=== PATIENT | male | born 1955 | race Caucasian/White ===

== ENCOUNTER 2020-01-03 05:55 | Emergency (ER) | payer MEDICARE ==
[~2020-01-03] VITALS: Ht 170.2 cm; Wt 68.0 kg
[~2020-01-03 05:55] MED LIST: LAM25 PO
[2020-01-03] MEDS ORDERED: HYDROCODONE/ACETAMINOPHEN 5/325MG TABLET PO STA (06:26)
[2020-01-03 07:16] LABS: BASOPHILS % 0.5 % (0.0-2.0); EOSINOPHILS % 1.8 % (0.0-5.0); HEMATOCRIT. 41.5 % (42.0-52.0); HEMOGLOBIN. 14.5 g/dL (14.0-18.0); LYMPHOCYTES % 25.5 % (20.0-50.0); MEAN CORPUSCULAR HEMOGLOBIN 33.4 pg (28.0-32.0); MEAN CORPUSCULAR VOLUME 95.7 fL (80.0-94.0); MEAN PLATELET VOLUME 6.8 fl (7.4-10.4); MONOCYTES % 5.4 % (2.0-8.0); NEUTROPHILS % 66.8 % (40.0-76.0); PLATELET 170 x1000/uL (130-400); RED BLOOD CELL COUNT 4.34 mill/uL (4.7-6.1); RED CELL DISTRIBUTION WIDTH 15.3 % (11.6-14.6)
[2020-01-03 07:22] LABS: CHLORIDE 104 mEq/L (98-107)
[2020-01-03 07:26] LABS: PROTHROMBIN TIME 10.8 sec (9.6-11.0)
[2020-01-03] MEDS ORDERED: SODIUM CHLORIDE 0.9% 1,000 ML IV ONE (07:32)
[2020-01-03 07:37] LABS: ETHANOL BLOOD 306 mg/dL
[2020-01-03] MEDS ORDERED: LORAZEPAM 1MG TABLET PO ONE (07:45)
[2020-01-03 12:05] VITALS: BP 159/91
== END 2020-01-03 10:40 | disposition home or self-care (01) ==
LOC: ER 05:55
DX: F10.129 Alcohol abuse with intoxication, unspecified (principal); Y90.8 Blood alcohol level of 240 mg/100 ml or more; M25.562 Pain in left knee; E86.0 Dehydration; I10 Essential (primary) hypertension; R79.89 Other specified abnormal findings of blood chemistry
CPT/HCPCS: 29505; 36415; 70450; 72170; 73562; 80053; 80320; 84484; 85025; 85610; 96360; 99285; J7030; G0480

== ENCOUNTER 2020-06-07 19:15 | Emergency (ER) | payer MEDICARE ==
[~2020-06-07] VITALS: Ht 175.3 cm; Wt 70.0 kg
[2020-06-08] MEDS ORDERED: KETOROLAC 30MG/ML VIAL IV STA (00:27)
[2020-06-08] MEDS ORDERED: ONDANSETRON HCL 4MG/2ML INJ IV STA (00:27)
[2020-06-08] MEDS ORDERED: FAMOTIDINE 20MG/2ML VIAL IV STA (00:27)
[2020-06-08] MEDS ORDERED: SODIUM CHLORIDE 0.9% 1,000 ML IV ONE (00:30)
[2020-06-08 01:10] LABS: BASOPHILS % 0.4 % (0.0-2.0); EOSINOPHILS % 1.4 % (0.0-5.0); HEMATOCRIT. 42.7 % (42.0-52.0); HEMOGLOBIN. 14.7 g/dL (14.0-18.0); LYMPHOCYTES % 20.8 % (20.0-50.0); MEAN CORPUSCULAR HEMOGLOBIN 34.2 pg (28.0-32.0); MEAN CORPUSCULAR VOLUME 99.5 fL (80.0-94.0); MEAN PLATELET VOLUME 7.8 fl (7.4-10.4); MONOCYTES % 9.4 % (2.0-8.0); PLATELET 228 x1000/uL (130-400); RED CELL DISTRIBUTION WIDTH 14.2 % (11.6-14.6)
[2020-06-08 01:17] LABS: CHLORIDE 101 mEq/L (98-107)
[2020-06-08 01:34] LABS: CLARITY URINE CLEAR (CLEAR); COLOR URINE YELLOW (YELLOW); KETONES URINE NEGATIVE (NEGATIVE); LEUKOCYTE ESTERASE URINE NEGATIVE (NEGATIVE); NITRITE URINE NEGATIVE (NEGATIVE); OCCULT BLOOD URINE NEGATIVE (NEGATIVE); PROTEIN URINE NEGATIVE (NEGATIVE); UROBILINOGEN URINE 0.2 E.U./dL (0.2-1.0)
[2020-06-08] MEDS ORDERED: CALCIUM CARBONATE 500MG TABLET CHEW PO ONE (02:45)
[2020-06-08 03:31] VITALS: BP 142/76
== END 2020-06-08 03:00 | disposition home or self-care (01) ==
LOC: ER 19:15
DX: K29.80 Duodenitis without bleeding (principal); R11.2 Nausea with vomiting, unspecified; I10 Essential (primary) hypertension; Z88.2 Allergy status to sulfonamides
CPT/HCPCS: 36415; 74176; 80053; 81003; 83690; 85025; 93005; 96361; 96374; 96375; 99285; J1885; J2405; J3490; J7030

== ENCOUNTER 2020-07-19 23:35 | Emergency (ER) | payer MEDICARE ==
[~2020-07-19] VITALS: Ht 177.8 cm; Wt 77.0 kg
[~2020-07-19 23:35] MED LIST changes: +ALPR1TAB2 PO; +AMPH20TA3 PO; +LISI10TA5 PO
[2020-07-20] MEDS ORDERED: ONDANSETRON HCL 4MG TABLET PO ONE
[2020-07-20 01:55] VITALS: BP 140/89
== END 2020-07-20 02:04 | disposition home or self-care (01) ==
LOC: ER 23:35
DX: R11.2 Nausea with vomiting, unspecified (principal); R06.02 Shortness of breath; R50.9 Fever, unspecified; I10 Essential (primary) hypertension; Z88.2 Allergy status to sulfonamides; Z79.899 Other long term (current) drug therapy; Z20.822 Contact with and (suspected) exposure to COVID-19
CPT/HCPCS: 71045; 93005; 99285; C9803; Q0162; U0003

== ENCOUNTER 2020-08-14 16:58 | Inpatient (IN) | payer MEDICARE ==
[~2020-08-14] VITALS: Ht 177.8 cm; Wt 72.7 kg
[~2020-08-14 16:58] MED LIST changes: +LISI10TA26 PO; -LISI10TA5 PO
[2020-08-14 17:00] VITALS: BP 133/84
[2020-08-14 18:06] VITALS: BP 133/84
[2020-08-14] MEDS ORDERED: CLONIDINE 0.1MG TABLET PO PRN (18:15)
[2020-08-14] MEDS ORDERED: INFLUENZA VACCINE 05/PF 0.5 ML VIAL IM ONE (18:30)
[2020-08-14 20:00] VITALS: BP 126/65
[2020-08-14] MEDS: HYDROCODONE/ACETAMINOPHEN 5/325MG TABLET PO PRN (20:46)
[2020-08-14] MEDS: ONDANSETRON 4MG ODT PO PRN (20:46)
[2020-08-14] MEDS: LAMOTRIGINE 25MG TABLET PO SCH (20:47)
[2020-08-14] MEDS: HYDRALAZINE HCL 100MG TABLET PO SCH (21:49)
[2020-08-14] MEDS: METOPROLOL TARTRATE 25MG TABLET PO SCH (21:50)
[2020-08-15] MEDS: HYDROCODONE/ACETAMINOPHEN 5/325MG TABLET PO PRN ×4 (06:01→22:14)
[2020-08-15] MEDS: ONDANSETRON 4MG ODT PO PRN (06:02)
[2020-08-15] MEDS: HYDRALAZINE HCL 100MG TABLET PO SCH ×3 (06:02→22:00)
[2020-08-15 07:37] LABS: HEMATOCRIT. 32.9 % (42.0-52.0); HEMOGLOBIN. 11.3 g/dL (14.0-18.0); MEAN CORPUSCULAR HEMOGLOBIN 34.6 pg (28.0-32.0); MEAN CORPUSCULAR VOLUME 100.8 fL (80.0-94.0); MEAN PLATELET VOLUME 7.5 fl (7.4-10.4); PLATELET 262 x1000/uL (130-400); RED BLOOD CELL COUNT 3.26 mill/uL (4.7-6.1)
[2020-08-15 07:42] LABS: CHLORIDE 107 mEq/L (98-107)
[2020-08-15 08:00] VITALS: BP 146/79
[2020-08-15] MEDS: FOLIC ACID 1MG TABLET PO SCH (08:27)
[2020-08-15] MEDS: METOPROLOL TARTRATE 25MG TABLET PO SCH ×2 (08:28→21:50)
[2020-08-15] MEDS: THIAMINE HCL 100MG TABLET PO SCH (08:28)
[2020-08-15] MEDS: LAMOTRIGINE 25MG TABLET PO SCH ×2 (08:28→21:49)
[2020-08-15] MEDS: FAMOTIDINE 20MG TABLET PO SCH ×2 (08:28→21:49)
[2020-08-15] MEDS: DOCUSATE SODIUM 100MG CAPSULE PO SCH ×2 (08:28→17:25)
[2020-08-15] MEDS: FOLIC ACID/VITAMIN B COMP W-C TABLET PO SCH (08:29)
[2020-08-15] MEDS: LISINOPRIL 40MG TABLET PO SCH (08:29)
[2020-08-15] MEDS ORDERED: PNEUMOCOCCAL 23-VAL P-SAC VAC 0.5 ML IM ONE (10:00)
[2020-08-15] MEDS: HEPARIN 5000 UNITS/ML VIAL SUBCUT SCH ×2 (10:19→21:49)
[2020-08-15 20:00] VITALS: BP 140/82
[2020-08-15 21:18] LABS: PLATELET ESTIMATE NORMAL
[2020-08-16] MEDS: HYDRALAZINE HCL 100MG TABLET PO SCH ×3 (05:14→22:00)
[2020-08-16 06:10] LABS: HEMOGLOBIN. 11.7 g/dL (14.0-18.0); MEAN CORPUSCULAR HEMOGLOBIN 34.8 pg (28.0-32.0); MEAN CORPUSCULAR VOLUME 101.2 fL (80.0-94.0); MEAN PLATELET VOLUME 7.4 fl (7.4-10.4); PLATELET 283 x1000/uL (130-400); RED BLOOD CELL COUNT 3.36 mill/uL (4.7-6.1); RED CELL DISTRIBUTION WIDTH 15.8 % (11.6-14.6)
[2020-08-16 06:33] LABS: FERRITIN 245 ng/mL (22-322)
[2020-08-16 06:34] LABS: FOLIC ACID (FOLATE) SERUM >20 ng/mL ng/mL (>5.38)
[2020-08-16 06:45] LABS: VITAMIN B12 SERUM 474 pg/mL (211-911)
[2020-08-16 08:00] VITALS: BP 140/83
[2020-08-16] MEDS: THIAMINE HCL 100MG TABLET PO SCH (08:08)
[2020-08-16] MEDS: FAMOTIDINE 20MG TABLET PO SCH ×2 (08:08→21:21)
[2020-08-16] MEDS: METOPROLOL TARTRATE 25MG TABLET PO SCH ×2 (08:09→21:20)
[2020-08-16] MEDS: LISINOPRIL 40MG TABLET PO SCH (08:09)
[2020-08-16] MEDS: FOLIC ACID/VITAMIN B COMP W-C TABLET PO SCH (08:10)
[2020-08-16] MEDS: LAMOTRIGINE 25MG TABLET PO SCH ×2 (08:10→21:20)
[2020-08-16] MEDS: DOCUSATE SODIUM 100MG CAPSULE PO SCH ×2 (08:10→16:57)
[2020-08-16] MEDS: HEPARIN 5000 UNITS/ML VIAL SUBCUT SCH ×2 (08:10→21:20)
[2020-08-16] MEDS: FOLIC ACID 1MG TABLET PO SCH (08:10)
[2020-08-16] MEDS: HYDROCODONE/ACETAMINOPHEN 5/325MG TABLET PO PRN ×3 (08:12→16:57)
[2020-08-16 08:20] LABS: CHLORIDE 105 mEq/L (98-107)
[2020-08-16 08:29] LABS: PHOSPHORUS 3.2 mg/dL (2.5-4.9); TOTAL IRON BINDING CAPACITY 261 ug/dL (250-450)
[2020-08-16 16:51] LABS: PLATELET ESTIMATE NORMAL
[2020-08-16] MEDS: CYANOCOBALAMIN 1000MCG/ML VIAL IM SCH (16:55)
[2020-08-16 20:00] VITALS: BP 125/74
[2020-08-17] MEDS: HYDROCODONE/ACETAMINOPHEN 5/325MG TABLET PO PRN ×5 (01:34→21:23)
[2020-08-17] MEDS: HYDRALAZINE HCL 100MG TABLET PO SCH ×3 (06:10→21:23)
[2020-08-17 08:00] VITALS: BP 131/73
[2020-08-17] MEDS: CYANOCOBALAMIN 1000MCG/ML VIAL IM SCH (08:12)
[2020-08-17] MEDS: HEPARIN 5000 UNITS/ML VIAL SUBCUT SCH ×2 (08:12→21:23)
[2020-08-17] MEDS: FOLIC ACID/VITAMIN B COMP W-C TABLET PO SCH (08:12)
[2020-08-17] MEDS: LISINOPRIL 40MG TABLET PO SCH (08:14)
[2020-08-17] MEDS: FOLIC ACID 1MG TABLET PO SCH (08:14)
[2020-08-17] MEDS: METOPROLOL TARTRATE 25MG TABLET PO SCH ×2 (08:14→21:22)
[2020-08-17] MEDS: LAMOTRIGINE 25MG TABLET PO SCH ×2 (08:14→21:21)
[2020-08-17] MEDS: FAMOTIDINE 20MG TABLET PO SCH ×2 (08:14→21:21)
[2020-08-17] MEDS: DOCUSATE SODIUM 100MG CAPSULE PO SCH ×2 (08:15→17:00)
[2020-08-17] MEDS: THIAMINE HCL 100MG TABLET PO SCH (08:15)
[2020-08-17 20:00] VITALS: BP 127/72
[2020-08-17] MEDS: ZOLPIDEM TARTRATE 5MG TABLET PO PRN (21:21)
[2020-08-18] MEDS: HYDRALAZINE HCL 100MG TABLET PO SCH ×3 (06:16→21:51)
[2020-08-18] MEDS: HYDROCODONE/ACETAMINOPHEN 5/325MG TABLET PO PRN ×3 (06:43→15:16)
[2020-08-18 08:09] VITALS: BP 135/76
[2020-08-18 08:15] VITALS: BP 135/76
[2020-08-18] MEDS: DOCUSATE SODIUM 100MG CAPSULE PO SCH ×3 (09:00→17:00)
[2020-08-18] MEDS: METOPROLOL TARTRATE 25MG TABLET PO SCH ×2 (10:10→21:00)
[2020-08-18] MEDS: FOLIC ACID 1MG TABLET PO SCH (10:10)
[2020-08-18] MEDS: FAMOTIDINE 20MG TABLET PO SCH ×2 (10:10→21:43)
[2020-08-18] MEDS: FOLIC ACID/VITAMIN B COMP W-C TABLET PO SCH (10:11)
[2020-08-18] MEDS: HEPARIN 5000 UNITS/ML VIAL SUBCUT SCH ×2 (10:11→21:43)
[2020-08-18] MEDS: CYANOCOBALAMIN 1000MCG/ML VIAL IM SCH (10:11)
[2020-08-18] MEDS: THIAMINE HCL 100MG TABLET PO SCH (10:11)
[2020-08-18] MEDS: LISINOPRIL 40MG TABLET PO SCH (10:11)
[2020-08-18] MEDS: LAMOTRIGINE 25MG TABLET PO SCH ×2 (10:11→21:44)
[2020-08-18 20:00] VITALS: BP 105/62
[2020-08-18] MEDS: ALPRAZOLAM 0.5 MG TABLET PO PRN (21:43)
[2020-08-19] MEDS: HYDRALAZINE HCL 100MG TABLET PO SCH ×3 (06:45→21:20)
[2020-08-19 08:24] VITALS: BP 115/74
[2020-08-19] MEDS: FOLIC ACID 1MG TABLET PO SCH (10:53)
[2020-08-19] MEDS: LISINOPRIL 40MG TABLET PO SCH (10:53)
[2020-08-19] MEDS: METOPROLOL TARTRATE 25MG TABLET PO SCH ×2 (10:53→21:17)
[2020-08-19] MEDS: THIAMINE HCL 100MG TABLET PO SCH (10:53)
[2020-08-19] MEDS: FAMOTIDINE 20MG TABLET PO SCH ×2 (10:54→21:18)
[2020-08-19] MEDS: DOCUSATE SODIUM 100MG CAPSULE PO SCH ×2 (10:54→16:57)
[2020-08-19] MEDS: LAMOTRIGINE 25MG TABLET PO SCH ×2 (10:54→21:18)
[2020-08-19] MEDS: FOLIC ACID/VITAMIN B COMP W-C TABLET PO SCH (10:54)
[2020-08-19] MEDS: HYDROCODONE/ACETAMINOPHEN 5/325MG TABLET PO PRN ×2 (11:15→21:19)
[2020-08-19] MEDS: HEPARIN 5000 UNITS/ML VIAL SUBCUT SCH ×2 (11:16→21:20)
[2020-08-19] MEDS: ALPRAZOLAM 0.5 MG TABLET PO PRN (12:01)
[2020-08-19 20:00] VITALS: BP_SYST 108; BP_SYST 128; BP_DIAS 87
[2020-08-19] MEDS: ZOLPIDEM TARTRATE 5MG TABLET PO PRN (21:18)
[2020-08-20] MEDS: HYDRALAZINE HCL 100MG TABLET PO SCH ×3 (05:55→21:09)
[2020-08-20 07:24] LABS: BASOPHILS % 1.2 % (0.0-2.0); EOSINOPHILS % 3.3 % (0.0-5.0); HEMATOCRIT. 32.7 % (42.0-52.0); HEMOGLOBIN. 11.2 g/dL (14.0-18.0); LYMPHOCYTES % 32.1 % (20.0-50.0); MEAN CORPUSCULAR HEMOGLOBIN 34.6 pg (28.0-32.0); MEAN PLATELET VOLUME 7.5 fl (7.4-10.4); MONOCYTES % 10.4 % (2.0-8.0); PLATELET 286 x1000/uL (130-400); RED BLOOD CELL COUNT 3.24 mill/uL (4.7-6.1); RED CELL DISTRIBUTION WIDTH 15.8 % (11.6-14.6)
[2020-08-20 07:44] VITALS: BP 138/72
[2020-08-20 08:18] LABS: CHLORIDE 108 mEq/L (98-107)
[2020-08-20] MEDS: FOLIC ACID 1MG TABLET PO SCH (08:18)
[2020-08-20] MEDS: DOCUSATE SODIUM 100MG CAPSULE PO SCH ×2 (08:18→16:21)
[2020-08-20] MEDS: THIAMINE HCL 100MG TABLET PO SCH (08:18)
[2020-08-20] MEDS: LAMOTRIGINE 25MG TABLET PO SCH ×2 (08:18→21:07)
[2020-08-20] MEDS: FAMOTIDINE 20MG TABLET PO SCH ×2 (08:18→21:08)
[2020-08-20] MEDS: METOPROLOL TARTRATE 25MG TABLET PO SCH ×2 (08:18→21:00)
[2020-08-20] MEDS: LISINOPRIL 40MG TABLET PO SCH (08:18)
[2020-08-20] MEDS: FOLIC ACID/VITAMIN B COMP W-C TABLET PO SCH (08:18)
[2020-08-20] MEDS: HEPARIN 5000 UNITS/ML VIAL SUBCUT SCH ×2 (08:19→21:08)
[2020-08-20] MEDS: HYDROCODONE/ACETAMINOPHEN 5/325MG TABLET PO PRN ×2 (08:25→21:09)
[2020-08-20] MEDS: ALPRAZOLAM 0.5 MG TABLET PO PRN (08:25)
[2020-08-20 20:00] VITALS: BP 112/74
[2020-08-20] MEDS: ZOLPIDEM TARTRATE 5MG TABLET PO PRN (23:31)
[2020-08-21] MEDS: HYDRALAZINE HCL 100MG TABLET PO SCH ×3 (06:07→21:03)
[2020-08-21] MEDS: HYDROCODONE/ACETAMINOPHEN 5/325MG TABLET PO PRN ×2 (06:07→16:51)
[2020-08-21 08:23] VITALS: BP 139/86
[2020-08-21] MEDS: DOCUSATE SODIUM 100MG CAPSULE PO SCH ×2 (09:00→16:22)
[2020-08-21] MEDS: FOLIC ACID/VITAMIN B COMP W-C TABLET PO SCH (09:36)
[2020-08-21] MEDS: HEPARIN 5000 UNITS/ML VIAL SUBCUT SCH ×2 (09:37→20:40)
[2020-08-21] MEDS: ALPRAZOLAM 0.5 MG TABLET PO PRN (09:37)
[2020-08-21] MEDS: METOPROLOL TARTRATE 25MG TABLET PO SCH ×2 (09:37→20:41)
[2020-08-21] MEDS: FOLIC ACID 1MG TABLET PO SCH (09:37)
[2020-08-21] MEDS: LAMOTRIGINE 25MG TABLET PO SCH ×2 (09:37→20:40)
[2020-08-21] MEDS: LISINOPRIL 40MG TABLET PO SCH (09:37)
[2020-08-21] MEDS: THIAMINE HCL 100MG TABLET PO SCH (09:37)
[2020-08-21] MEDS: FAMOTIDINE 20MG TABLET PO SCH ×2 (09:38→20:40)
[2020-08-21 17:06] LABS: 25-HYDROXY VITAMIN D3 13 ng/mL (.)
[2020-08-21 20:00] VITALS: BP 121/76
[2020-08-21] MEDS: ZOLPIDEM TARTRATE 5MG TABLET PO PRN (21:24)
[2020-08-22] MEDS: HYDRALAZINE HCL 100MG TABLET PO SCH ×3 (05:42→22:00)
[2020-08-22] MEDS: HYDROCODONE/ACETAMINOPHEN 5/325MG TABLET PO PRN (06:52)
[2020-08-22 08:23] VITALS: BP 134/78
[2020-08-22] MEDS: DOCUSATE SODIUM 100MG CAPSULE PO SCH ×2 (09:00→16:37)
[2020-08-22] MEDS: HEPARIN 5000 UNITS/ML VIAL SUBCUT SCH (09:00)
[2020-08-22] MEDS: LAMOTRIGINE 25MG TABLET PO SCH ×2 (09:36→21:57)
[2020-08-22] MEDS: FOLIC ACID/VITAMIN B COMP W-C TABLET PO SCH (09:36)
[2020-08-22] MEDS: THIAMINE HCL 100MG TABLET PO SCH (09:36)
[2020-08-22] MEDS: LISINOPRIL 40MG TABLET PO SCH (09:37)
[2020-08-22] MEDS: METOPROLOL TARTRATE 25MG TABLET PO SCH ×2 (09:37→21:57)
[2020-08-22] MEDS: FOLIC ACID 1MG TABLET PO SCH (09:37)
[2020-08-22] MEDS: ALPRAZOLAM 0.5 MG TABLET PO PRN ×2 (09:38→21:56)
[2020-08-22] MEDS: FAMOTIDINE 20MG TABLET PO SCH ×2 (09:38→21:56)
[2020-08-22] MEDS ORDERED: ERGOCALCIFEROL 50000UNITS CAPSULE PO SCH (10:00)
[2020-08-22 20:00] VITALS: BP_SYST 102; BP_SYST 107; BP_DIAS 67; BP_DIAS 72
[2020-08-22] MEDS ORDERED: IOHEXOL-300 100 ML BOTTLE ONE (21:28)
[2020-08-22 22:51] VITALS: BP 102/67
[2020-08-23] MEDS: HYDROCODONE/ACETAMINOPHEN 5/325MG TABLET PO PRN ×3 (02:14→20:15)
[2020-08-23] MEDS: HYDRALAZINE HCL 100MG TABLET PO SCH ×3 (06:34→22:00)
[2020-08-23 07:57] VITALS: BP 111/62
[2020-08-23] MEDS: FOLIC ACID/VITAMIN B COMP W-C TABLET PO SCH (08:00)
[2020-08-23] MEDS: FOLIC ACID 1MG TABLET PO SCH (08:00)
[2020-08-23] MEDS: THIAMINE HCL 100MG TABLET PO SCH (08:00)
[2020-08-23] MEDS: LISINOPRIL 40MG TABLET PO SCH (08:01)
[2020-08-23] MEDS: LAMOTRIGINE 25MG TABLET PO SCH ×2 (08:01→20:14)
[2020-08-23] MEDS: FAMOTIDINE 20MG TABLET PO SCH ×2 (08:01→20:14)
[2020-08-23] MEDS: METOPROLOL TARTRATE 25MG TABLET PO SCH ×2 (08:01→21:00)
[2020-08-23] MEDS: DOCUSATE SODIUM 100MG CAPSULE PO SCH ×2 (08:02→17:00)
[2020-08-23] MEDS: ALPRAZOLAM 0.5 MG TABLET PO PRN (13:36)
[2020-08-23 15:43] LABS: BASOPHILS % 0.7 % (0.0-2.0); EOSINOPHILS % 2.3 % (0.0-5.0); HEMATOCRIT. 33.7 % (42.0-52.0); HEMOGLOBIN. 11.5 g/dL (14.0-18.0); LYMPHOCYTES % 14.4 % (20.0-50.0); MEAN CORPUSCULAR HEMOGLOBIN 34.5 pg (28.0-32.0); MEAN CORPUSCULAR VOLUME 100.9 fL (80.0-94.0); NEUTROPHILS % 76.6 % (40.0-76.0); PLATELET 297 x1000/uL (130-400); RED BLOOD CELL COUNT 3.34 mill/uL (4.7-6.1); RED CELL DISTRIBUTION WIDTH 15.1 % (11.6-14.6)
[2020-08-23 15:52] LABS: CHLORIDE 107 mEq/L (98-107)
[2020-08-23] MEDS ORDERED: LISI40TA13 PO (16:35)
[2020-08-23] MEDS ORDERED: HYDR100T26 MT (16:35)
[2020-08-23 20:00] VITALS: BP 119/77
[2020-08-23] MEDS: ZOLPIDEM TARTRATE 5MG TABLET PO PRN (23:06)
[2020-08-24] MEDS: HYDRALAZINE HCL 100MG TABLET PO SCH ×3 (05:46→22:00)
[2020-08-24 08:00] VITALS: BP 132/87
[2020-08-24] MEDS: THIAMINE HCL 100MG TABLET PO SCH (08:39)
[2020-08-24] MEDS: FOLIC ACID/VITAMIN B COMP W-C TABLET PO SCH (08:40)
[2020-08-24] MEDS: FAMOTIDINE 20MG TABLET PO SCH ×2 (08:40→21:00)
[2020-08-24] MEDS: FOLIC ACID 1MG TABLET PO SCH (08:40)
[2020-08-24] MEDS: LISINOPRIL 40MG TABLET PO SCH (08:41)
[2020-08-24] MEDS: METOPROLOL TARTRATE 25MG TABLET PO SCH ×2 (08:42→21:41)
[2020-08-24] MEDS: LAMOTRIGINE 25MG TABLET PO SCH ×2 (08:42→21:40)
[2020-08-24] MEDS: HYDROCODONE/ACETAMINOPHEN 5/325MG TABLET PO PRN ×2 (08:43→21:43)
[2020-08-24] MEDS: DOCUSATE SODIUM 100MG CAPSULE PO SCH ×2 (09:00→17:00)
[2020-08-24] MEDS: ALPRAZOLAM 0.5 MG TABLET PO PRN (13:18)
[2020-08-24 13:20] VITALS: BP 111/70
[2020-08-24 20:00] VITALS: BP 125/68
[2020-08-25] MEDS: ZOLPIDEM TARTRATE 5MG TABLET PO PRN (01:04)
[2020-08-25] MEDS: HYDRALAZINE HCL 100MG TABLET PO SCH ×2 (05:57→13:28)
[2020-08-25] MEDS: HYDROCODONE/ACETAMINOPHEN 5/325MG TABLET PO PRN ×2 (07:28→13:28)
[2020-08-25] MEDS: FAMOTIDINE 20MG TABLET PO SCH (08:16)
[2020-08-25] MEDS: LISINOPRIL 40MG TABLET PO SCH (08:16)
[2020-08-25] MEDS: FOLIC ACID/VITAMIN B COMP W-C TABLET PO SCH (08:16)
[2020-08-25] MEDS: METOPROLOL TARTRATE 25MG TABLET PO SCH (08:16)
[2020-08-25] MEDS: FOLIC ACID 1MG TABLET PO SCH (08:16)
[2020-08-25] MEDS: DOCUSATE SODIUM 100MG CAPSULE PO SCH (08:16)
[2020-08-25] MEDS: LAMOTRIGINE 25MG TABLET PO SCH (08:16)
[2020-08-25] MEDS: THIAMINE HCL 100MG TABLET PO SCH (08:16)
[2020-08-25 08:29] VITALS: BP 136/75
[2020-08-25] MEDS: ALPRAZOLAM 0.5 MG TABLET PO PRN (09:29)
[2020-08-25 12:07] VITALS: BP 136/75
[2020-08-25 13:07] LABS: ANA IFA Negative (.)
[2020-08-25 13:28] VITALS: BP 110/72
== END 2020-08-25 15:30 | disposition home health service (06) | DRG 74 ==
PROVIDERS: ADMIT Physical Medicine & Rehabilitation Spinal Cord Injury Medicine; ATTEND Ophthalmology
DX: G62.81 Critical illness polyneuropathy (principal); K80.00 Calculus of gallbladder with acute cholecystitis without obstruction; I42.6 Alcoholic cardiomyopathy; I11.0 Hypertensive heart disease with heart failure; M17.12 Unilateral primary osteoarthritis, left knee; K29.70 Gastritis, unspecified, without bleeding; I50.9 Heart failure, unspecified; G62.1 Alcoholic polyneuropathy; I65.21 Occlusion and stenosis of right carotid artery; E55.9 Vitamin D deficiency, unspecified; M48.02 Spinal stenosis, cervical region; Z20.822 Contact with and (suspected) exposure to COVID-19; G40.909 Epilepsy, unspecified, not intractable, without status epilepticus; D64.9 Anemia, unspecified; K76.0 Fatty (change of) liver, not elsewhere classified; K20.90 Esophagitis, unspecified without bleeding; D72.819 Decreased white blood cell count, unspecified; F10.20 Alcohol dependence, uncomplicated; Z88.2 Allergy status to sulfonamides; Z82.49 Family history of ischemic heart disease and other diseases of the circulatory system; Z90.49 Acquired absence of other specified parts of digestive tract
CPT/HCPCS: 36415; 70496; 70498; 80048; 80053; 82306; 82607; 82728; 82746; 83540; 83550; 83735; 84100; 84134; 84443; 85025; 86256; 87426; 90686; 90732; 92523; 93970; 97110; 97112; 97116; 97162; 97166; 97530; 97535; J1644; J3420; Q0162; Q9967

== ENCOUNTER 2021-12-28 20:31 | Emergency (ER) | payer MEDICARE ==
[~2021-12-28] VITALS: Ht 167.6 cm; Wt 86.0 kg
[~2021-12-28 20:31] MED LIST changes: +HYDR100T26 MT; -LISI10TA26 PO; +LISI40TA13 PO
[2021-12-28] MEDS ORDERED: KETOROLAC 30MG/ML VIAL IV STA (21:26)
[2021-12-28 21:44] LABS: BASOPHILS % 0.5 % (0.0-2.0); EOSINOPHILS % 4.8 % (0.0-5.0); HEMATOCRIT. 45.8 % (42.0-52.0); HEMOGLOBIN. 15.5 g/dL (14.0-18.0); LYMPHOCYTES % 25.1 % (20.0-50.0); MEAN CORPUSCULAR HEMOGLOBIN 33.4 pg (28.0-32.0); MEAN CORPUSCULAR VOLUME 98.5 fL (80.0-94.0); MEAN PLATELET VOLUME 7.3 fl (7.4-10.4); MONOCYTES % 8.6 % (2.0-8.0); PLATELET 167 x1000/uL (130-400); RED BLOOD CELL COUNT 4.65 mill/uL (4.7-6.1); RED CELL DISTRIBUTION WIDTH 13.6 % (11.6-14.6)
[2021-12-28 21:53] LABS: CHLORIDE 104 mEq/L (98-107)
[2021-12-29 02:00] VITALS: BP 149/102
[2021-12-29] MEDS ORDERED: SODIUM CHLORIDE 0.9% 500 ML IV ONE (02:15)
[2021-12-29] MEDS ORDERED: ONDANSETRON HCL 4MG/2ML INJ IV ONE (02:15)
[2021-12-29] MEDS ORDERED: FAMOTIDINE 20MG/2ML VIAL IV ONE (02:15)
[2021-12-29] MEDS ORDERED: LEVO750T46 MT (03:01)
[2021-12-29] MEDS ORDERED: ONDA4TAB11 PO (03:02)
[2021-12-29] MEDS ORDERED: LEVOFLOXACIN 250MG TABLET PO ONE (03:15)
== END 2021-12-29 03:46 | disposition home or self-care (01) ==
LOC: ER 20:31
DX: R05.9 Cough, unspecified (principal); R11.2 Nausea with vomiting, unspecified; I48.91 Unspecified atrial fibrillation; I10 Essential (primary) hypertension; Z88.2 Allergy status to sulfonamides; Z20.822 Contact with and (suspected) exposure to COVID-19; Z90.49 Acquired absence of other specified parts of digestive tract; Z79.899 Other long term (current) drug therapy
CPT/HCPCS: 36415; 71045; 74176; 80053; 83690; 85025; 87426; 96361; 96374; 96375; 99285; C9803; J1885; J2405; J3490; J7040